=== PATIENT | female | born 1965 | race Caucasian/White ===

== ENCOUNTER → 2020-08-31 | Outpatient (CLI) | payer BC ==
[~2020-08-31] MED LIST: CABOMETYX PO; ENOXAPARIN120 MG/0.8 SC; OMEPRAZOLE20 M1 PO; TRAZODONE HCL100 MG PO; TYLENOL 325MG325 MG PO
[2020-08-31 11:01] LABS: HEMOGLOBIN 9.8 gm/dl (12.3-15.3); RED BLOOD COUNT 3.12 M/UL (4.00-5.10); WHITE BLOOD COUNT 4.8 K/UL (4.5-11.0)
== END ==
LOC: LAB 10:15
DX: C64.1 Malignant neoplasm of right kidney, except renal pelvis (principal); D64.81 Anemia due to antineoplastic chemotherapy; T45.1X5A Adverse effect of antineoplastic and immunosuppressive drugs, initial encounter
CPT/HCPCS: 36415; 82668; 82728; 83540; 84466; 85025

== ENCOUNTER → 2021-01-11 | Outpatient (CLI) | payer BC | LOC: US 01-04 15:30 | DX: I82.433 Acute embolism and thrombosis of popliteal vein, bilateral (principal) | CPT/HCPCS: 93970 ==

== ENCOUNTER → 2022-03-11 | Outpatient (CLI) | payer BC | LOC: KOH-I 10:21 | DX: R06.02 Shortness of breath (principal); R91.8 Other nonspecific abnormal finding of lung field | CPT/HCPCS: 71046 ==

== ENCOUNTER → 2022-04-15 | Outpatient (CLI) | payer BC | LOC: KOH-I 14:26 | DX: J06.9 Acute upper respiratory infection, unspecified (principal) | CPT/HCPCS: 71046 ==